=== PATIENT | female | born 1970 | race African-American/Black ===

== ENCOUNTER 2017-12-23 22:17 | Observation (INO) | payer OTHER ==
[2017-12-23 22:34] VITALS: BMI 32.8
[2017-12-24] MEDS ORDERED: SODIUM CHLORIDE 1,000 ML IV STA (00:19)
--- NOTE | 2017-12-24 00:19 | PDOC ---
History of Present Illness - General Chief Complaint: Pain Stated Complaint: WEAKNESS Time Seen by Provider: 12/24/17 00:02 - History of Present Illness Initial Comments: 12/24/17 00:36 The patient is a 47 year old female with a history of Anemia who presents for evaluation of headache. The patient notes onset of headache earlier today with some associated left hand numbness prompting her presentation to the ED for evaluation. She notes some associated photophobia and phonophobia as well and denies any history of headaches on exam. She otherwise denies fevers, chills, SOB, chest pain, nausea, vomiting, abdominal pain, weakness, tingling, or changes with urination or bowel movements. Past History - Past Medical History Allergies/Adverse Reactions: Allergies Allergy/AdvReac Type Severity Reaction Status Date / Time No Known Allergies Allergy Verified 12/23/17 22:31 Home Medications: Ambulatory Orders NK [No Known Home Medication] 12/24/17 Anemia: Yes COPD: No Thyroid Disease: Yes - Immunization History Immunization Up to Date: Yes - Suicide/Smoking/Psychosocial Hx Smoking History: Current every day smoker Have you smoked in the past 12 months: Yes Number of Cigarettes Smoked Daily: 4 Information on smoking cessation initiated: No 'Breaking Loose' booklet given: 01/02/15 Hx Alcohol Use: No Drug/Substance Use Hx: No Substance Use Type: None Review of Systems - Review of Systems Comments:: 12/24/17 00:37 Constitutional: No fevers, chills, fatigue, malaise HEENT: No Rhinorrhea, nasal congestion, visual changes Cardiovascular: No chest pain, syncope, palpitations, lightheadedness Respiratory: No Cough, SOB, Hemoptysis, Gastrointestinal: No Abdominal pain, Nausea, Vomiting, Constipation, Diarrhea, Melena Genitourinary: No Dysuria, Frequency, Urgency, Hesitancy, Hematuria, Flank pain Musculoskeletal: No Myalgia, arthralgia Skin: No rashes, itching, bruising, pallor Neurologic: Headache, numbness. No Dizziness, Weakness, or Tingling Psychiatric: No Hallucinations. No SI or HI *Physical Exam - Vital Signs Last Vital Signs Temp Pulse Resp BP Pulse Ox 99.0 F 98 H 18 120/73 100 12/23/17 22:32 12/23/17 22:32 12/23/17 22:32 12/23/17 22:32 12/23/17 22:32 - Physical Exam Comments: 12/24/17 00:38 General Appearance: Nourished. In Mild Apparent Distress HEENT: EOMI, EVAN. No Pharyngeal Erythema, Tonsillar Exudate, Tonsillar Erythema Neck: No Cervical Lymphadenopathy Respiratory/Chest: Lungs Clear, Normal Breath Sounds. No Crackles, Rales, Rhonchi, Wheezing Cardiovascular: Regular Rhythm, Regular Rate. No Murmur, Gallops, Rubs Gastrointestinal/Abdominal: Normal Bowel Sounds, Soft. No Guarding, Rebound, Tenderness Musculoskeletal: No CVA Tenderness Extremity: Normal Capillary Refill Integumentary: Normal Color, Dry, Warm Neurologic: fund accountant II-XII NML intact, Fully Oriented, Alert, Normal Mood/Affect, Normal Response, Motor Strength 5/5. ED Treatment Course - LABORATORY CBC & Chemistry Diagram: 12/24/17 00:40 12/24/17 00:40 Medical Decision Making - Medical Decision Making 12/24/17 00:41 The patient is a 47 year old female with a history of Anemia who presents for evaluation of headache. Differential includes but is not limited to: Migraine headache, Intracranial process, infectious, metabolic derangement. Given the patient's history and physical exam, we will obtain a cbc, cmp, ua, urine culture and head ct to evaluate further. We will treat in the meantime with iv fluids, iv tylenol, benadryl, and reglan. We will continue to monitor and reassess while here in the ED. 12/24/17 04:36 CBC demonstrates a hgb of 6.5. CMP, ua are unremarkable. Head CT is unremarkable as preliminarily read by our incident response manager radiologist. The patient reports continued symptoms as well as generalized weakness which is likely due to her anemia. She notes that she has had blood transfusions in the past and has not been taking her iron supplements lately. We believe the patient requires observation admission for further management and will transfuse the patient with 2 units of PRBC. We discussed the case with the hospitalist team who accepted the patient for admission. *DC/Admit/Observation/Transfer Diagnosis at time of Disposition: Headache Qualifiers: Headache type: unspecified Headache chronicity pattern: unspecified pattern Intractability: not intractable Qualified Code(s): R51 - Headache Anemia Qualifiers: Anemia type: unspecified type Qualified Code(s): D64.9 - Anemia, unspecified - Discharge Dispostion Condition at time of disposition: Stable Decision to Admit order: Yes - Referrals - Patient Instructions - Post Discharge Activity
[2017-12-24] MEDS ORDERED: ACETAMINOPHEN 1000 MG/100 ML VIAL (NON FORMULARY) IVPB ONE (00:20)
[2017-12-24] MEDS ORDERED: METOCLOPRAMIDE HCL INJECTION 10 MG/2 ML VIAL IVPUSH ONE (00:20)
[2017-12-24] MEDS ORDERED: METOCLOPRAMIDE HCL INJECTION 10 MG/2 ML VIAL ONE (00:35)
[2017-12-24] MEDS ORDERED: ACETAMINOPHEN INJECTION 100 ML IVPB ONE (00:35)
--- NOTE | 2017-12-24 00:37 | PDOC ---
Attending Attestation - HPI HPI: 12/24/17 00:43 The patient is a 47 year old female, with a significant past medical history of anemia, who presents to the emergency department with complaint of headache today. She reports her headache is exacerbated by sound and light. The patient denies chest pain, shortness of breath, visual changes, and dizziness. The patient denies fever, chills, nausea, vomit, diarrhea and constipation. The patient denies dysuria, frequency, urgency and hematuria. Allergies: NKDA Past surgical history: none reported Social history: denies tobacco and illicit drug use. - Medical Decision Making 12/24/17 00:43 Documentation prepared by Magaly Stubbs, acting as medical billing and coding specialist for Bj Swain DO. <Magaly Stubbs - Last Filed: 12/24/17 00:56> - Resident Resident Name: MonserratHieu - ED Attending Attestation I have performed the following: I have examined & evaluated the patient, The case was reviewed & discussed with the resident, I agree w/resident's findings & plan, Exceptions are as noted - Physicial Exam PE: 12/24/17 01:21 Physical Exam General Appearance: Yes: Appropriately Dressed. No: Apparent Distress, Intoxicated HEENT: positive: EOMI, EVAN, Normal ENT Inspection, Normal Voice, TMs Normal, Pharynx Normal. negative: Pale Conjunctivae, Photophobia, Scleral Icterus (R), Scleral Icterus (L) Neck: positive: Trachea midline, Normal Thyroid, Supple. negative: Tender, Rigid, Carotid bruit, Stridor, Lymphadenopathy (R), Lymphadenopathy (L), Thyromegaly Respiratory/Chest: positive: Lungs Clear, Normal Breath Sounds. negative: Chest Tender, Respiratory Distress, Accessory Muscle Use, Labored Respiration, RES, Crackles, Rales, Rhonchi, Stridor, Wheezing, Dullness Cardiovascular: positive: Regular Rhythm, Regular Rate, S1, S2. negative: Edema , JVD, Murmur, Bradycardia, Tachycardia Vascular Pulses: Dorsalis-Pedis (R): 2+, Doralis-Pedis (L): 2+ Gastrointestinal/Abdominal: positive: Normal Bowel Sounds, Flat, Soft. negative : Tender, Organomegaly, Pulsatile Mass, Increased Bowel Sounds, Decreased BS, Distended, Guarding, Rebound, Hernia, Hepatomegaly, Spleenomegaly Lymphatic: negative: Adenopathy, Tenderness Musculoskeletal: positive: Normal Inspection. negative: CVA Tenderness, Decreased Range of Motion Extremity: positive: Normal Capillary Refill, Normal Inspection, Normal Range of Motion, Pelvis Stable. negative: Tender, Pedal Edema, Swelling, Erythema Integumentary: positive: Normal Color, Dry, Warm. negative: Cyanotic, Erythema , Jaundice, Rash Neurologic: positive: digital asset coordinator II-XII NML intact, Fully Oriented, Alert, Normal Mood/ Affect, Motor Strength 5/5. negative: EOM Palsy, Facial Droop, Sensory Deficit - Medical Decision Making 12/24/17 02:11 Pt will be admitted for further evaluation and care. <Bj Swain - Last Filed: 12/24/17 02:11>
[2017-12-24 01:04] LABS: BASO % 0.7 % (0-2.0); EOS % 0.1 % (0-4.5); HEMATOCRIT 22.1 % (32.4-45.2); LYMPH % 27.6 % (8-40); MCHC 29.6 g/dl (32.0-36.0); MEAN CELL VOLUME 58.3 fl (80-96); MEAN PLT VOLUME 8.8 fl (7.5-11.1); MONO % 10.1 % (3.8-10.2); NEUT % 61.5 % (42.8-82.8); PLATELET COUNT 591 K/MM3 (134-434); RBC 3.78 M/mm3 (3.60-5.2); RDW 20.9 % (11.6-15.6); WHITE BLOOD COUNT 9.2 K/mm3 (4.0-10.0)
[2017-12-24 01:13] LABS: MCH 17.3 pg (25.7-33.7)
[2017-12-24 01:15] LABS: HEMOGLOBIN 6.5 GM/dL (10.7-15.3)
[2017-12-24] MEDS ORDERED: traMADol HCL 50 MG TABLET PO ONE (01:20)
[2017-12-24 01:22] LABS: ALBUMIN 3.3 g/dl (3.4-5.0); ANION GAP 5 (8-16); BILIRUBIN,TOTAL 0.1 mg/dL (0.2-1.0); BLOOD UREA NITROGEN 9 mg/dL (7-18); CHLORIDE 107 mmol/L (98-107); CO2 26 mmol/L (21-32); CREATININE 0.8 mg/dL (0.55-1.02); GLUCOSE,RANDOM 110 mg/dL (74-106); SGPT/ALT 26 U/L (12-78); SODIUM 138 mmol/L (136-145); TOT PROT 6.9 g/dl (6.4-8.2)
[2017-12-24 01:23] LABS: URINE APPEARANCE SLCLOUDY; URINE BILIRUBIN NEGATIVE (<2.0 mg/dL); URINE COLOR STRAW; URINE GLUCOSE (UA) NEGATIVE (NEGATIVE); URINE KETONE NEGATIVE (NEGATIVE); URINE LEUK ESTERASE NEGATIVE (NEGATIVE); URINE NITRITE NEGATIVE (NEGATIVE); URINE PROTEIN NEGATIVE (NEGATIVE); URINE UROBILINOGEN NEGATIVE mg/dL (0.2-1.0)
[2017-12-24 01:23] LABS: ALK PHOS 100 U/L (45-117)
[2017-12-24 01:25] LABS: POTASSIUM 4.4 mmol/L (3.5-5.1); SGOT/AST 37 U/L (15-37)
[2017-12-24 01:55] LABS: ANISOCYTOSIS 2+; PLATELET ESTIMATE INCREASED; TEAR DROP CELLS 1+
[2017-12-24] MEDS ORDERED: traMADol HCL 50 MG TABLET ONE (02:21)
--- NOTE | 2017-12-24 03:43 | PN ---
Teaching Attending Note Name of Resident: Zac Howell ATTENDING PHYSICIAN STATEMENT I saw and evaluated the patient. I reviewed the resident's note and discussed the case with the resident. I agree with the resident's findings and plan as documented. SUBJECTIVE: Patient is a 47 year old woman with a history of anemia, ?hypothyroidism, uterine fibroids, and menorrhagia who presents for evaluation of headache. The patient notes onset of headache earlier today with some associated left hand numbness prompting her presentation to the ED for evaluation. She notes some associated photophobia and phonophobia as well and denies any history of headaches on exam. She otherwise denies fevers, chills, SOB, chest pain, nausea , vomiting, abdominal pain, weakness, tingling, or changes with urination or bowel movements. She has known about her anemia for many years, has heavy menses that last up to 7 days, known about fibroid for years and has not aggressively explored options for care. Has 2 adult children. LMP - her period just concluded today. OBJECTIVE: In no acute distress. Obese Vital Signs Period Temp Pulse Resp BP Sys/Mcgraw Pulse Ox Last 24 Hr 99.0 F 98 18 120/73 100-100 HEENT: No Jaundice, eye redness or discharge, +Pallor; PERRLA, EOMI. Normocephalic, atraumatic. External ears are normal and hearing is grossly intact. No nasal discharge. Neck: Supple, nontender. No palpable adenopathy or thyromegaly. No JVD Chest: Good effort. Clear to auscultation and percussion. Heart: Regular. No S3, rub or murmur Abdomen: Not distended, soft, nontender and no HSM. No rebound or guarding. Normoactive bowel sounds. Ext: Peripheral pulses intact. No leg edema. Skin: Warm and dry. No petechiae, rash or ecchymosis. Neuro: Alert. Oriented x3. CN 2-12 grossly intact. Sensation grossly intact in all four extremities and DTR are symmetric. Home Medications Medication Instructions Recorded NK [No Known Home Medication] 12/24/17 Abnormal Lab Results 12/24/17 12/24/17 12/24/17 00:40 00:40 02:13 Hgb 6.5 L* Hct 22.1 L MCV 58.3 L MCH 17.3 L MCHC 29.6 L RDW 20.9 H Plt Count 591 H D Anion Gap 5 L Random Glucose 110 H Total Bilirubin 0.1 L Albumin 3.3 L Crossmatch See Detail ASSESSMENT AND PLAN: 1. Severe anemia - Likely due to fibroid-associated excessive menstrual bleeding. Headache most likely due to anemia. Head CT scan is negative and EKG shows T wave inversion in V4-6. Repeat EKG pending. Patient is most likely iron deficient, but will send blood to confirm and treat with IV Venofer 500 mg X 2 doses and get stool hemoccult test. Oral FeSO4 is useless in this setting. Needs STAT fibroid embolization or myomectomy/hysterectomy if embolization fails. The potential for anemia-induced heart failure explained to patient and her 32 year old daughter. Refer to IR and HEAD MECHANIC. 2. Obesity - Will provide patient all the necessary assistance, counseling and positive reinforcement to facilitate weight loss. Consult security systems technician. 3. DVT prophylaxis - Heparin 5000u sq tid. 4. Advance directives - Full code
[2017-12-24] MEDS ORDERED: SODIUM CHLORIDE 1,000 ML IV SCH (04:30)
[2017-12-24] MEDS ORDERED: IRON SUCROSE INJECTION 500 MG in SODIUM CHLORIDE 225 ML IVPB SCH (04:34)
--- NOTE | 2017-12-24 04:54 | HP ---
CHIEF COMPLAINT: hand tingling and headache PCP: HISTORY OF PRESENT ILLNESS: 47 yo female w? PMH of Fibroids, anemia (required transfusion once before), presents to ED complaining of headache, left hand numbness and tingling. Pt repeatedly fell asleep during interview and was not fully cooperative. States that she knows she has fibroids and that they cause heavy menstrual periods. LMP 1 wk ago, lasted 7 days, required 5/6 super absorbant pads per day.States that she has followed with PACKERHEAD MACHINE OPERATOR, but that they have never recommended surgery or embolization, though she has the history of anemia since . When I saw her , she says her headache has resolved. ER course was notable for: (1) H/H 6.5/22.1, MCV 58 (2) Type/Screen, 2 units PRBCs ordered from ED (3) Recent Travel: none PAST MEDICAL HISTORY: Anemia as above Uterine fibroid(s?) PAST SURGICAL HISTORY: denies Social History: Smoking: denies Alcohol: denies Drugs: denies Family History: Allergies No Known Allergies Allergy (Verified 12/23/17 22:31) HOME MEDICATIONS: Home Medications Medication Instructions Recorded NK [No Known Home Medication] 12/24/17 REVIEW OF SYSTEMS CONSTITUTIONAL: generalized weakness Absent: fever, chills, diaphoresis, , malaise, loss of appetite, weight change HEENT: Absent: rhinorrhea, nasal congestion, throat pain, throat swelling, difficulty swallowing, mouth swelling, ear pain, eye pain, visual changes CARDIOVASCULAR: Absent: chest pain, syncope, palpitations, irregular heart rate, lightheadedness , peripheral edema RESPIRATORY: Absent: cough, shortness of breath, dyspnea with exertion, orthopnea, wheezing, stridor, hemoptysis GASTROINTESTINAL: Absent: abdominal pain, abdominal distension, nausea, vomiting, diarrhea, constipation, melena, hematochezia GENITOURINARY: Absent: dysuria, frequency, urgency, hesitancy, hematuria, flank pain, genital pain MUSCULOSKELETAL: Absent: myalgia, arthralgia, joint swelling, back pain, neck pain SKIN: Absent: rash, itching, pallor HEMATOLOGIC/IMMUNOLOGIC: Absent: easy bleeding, easy bruising, lymphadenopathy, frequent infections ENDOCRINE: Absent: unexplained weight gain, unexplained weight loss, heat intolerance, cold intolerance NEUROLOGIC: paresthesias, headache Absent:, focal weakness, dizziness, unsteady gait, seizure, mental status changes, bladder or bowel incontinence PSYCHIATRIC: Absent: anxiety, depression, suicidal or homicidal ideation, hallucinations. PHYSICAL EXAMINATION Vital Signs - 24 hr 12/23/17 12/24/17 12/24/17 22:32 00:52 03:51 Temperature 99.0 F Pulse Rate 98 H Pulse Rate [ 88 Right] Respiratory 18 18 Rate Blood Pressure 120/73 Blood Pressure 122/76 [Left Arm] O2 Sat by Pulse 100 100 100 Oximetry (%) GENERAL: Sleepy during exam, repeatedly required reawakening, oriented. HEAD: Normal with no signs of trauma. EYES: PERRL, no scleral icterus EARS, NOSE, THROAT: Ears normal, nares patent, oropharynx clear without exudates. Moist mucous membranes. NECK: supple without lymphadenopathy, JVD, or masses. LUNGS: CTA b/l no rhonchi or crackles HEART: RRR no murmurs noted, S1S2 ABDOMEN: Soft, nontender, not distended, normoactive bowel sounds, no guarding, no rebound, Possible enlarged uterus MUSCULOSKELETAL: Normal range of motion at all joints. No bony deformities or tenderness. No CVA tenderness. UPPER EXTREMITIES: warm, well-perfused. No cyanosis. No clubbing. No peripheral edema. LOWER EXTREMITIES: warm, well-perfused. No calf tenderness. No peripheral edema. NEUROLOGICAL: Cranial nerves II-XII grossly intact. PSYCHIATRIC: uncooperative. oriented, but poor eye contact and communication Laboratory Results - last 24 hr 12/24/17 12/24/17 12/24/17 00:40 00:40 00:40 WBC 9.2 RBC 3.78 Hgb 6.5 L* Hct 22.1 L MCV 58.3 L MCH 17.3 L MCHC 29.6 L RDW 20.9 H Plt Count 591 H D MPV 8.8 Absolute Neuts (auto) 5.6 Neutrophils % 61.5 D Lymphocytes % 27.6 D Monocytes % 10.1 D Eosinophils % 0.1 Basophils % 0.7 Nucleated RBC % 0 Hypochromia 3+ Platelet Estimate Increased Platelet Comment Large platelets Polychromasia 2+ Basophilic Stippling 1+ Anisocytosis 2+ Microcytosis 3+ Tear Drop Cells 1+ Sodium 138 Potassium 4.4 Chloride 107 Carbon Dioxide 26 Anion Gap 5 L BUN 9 Creatinine 0.8 Creat Clearance w eGFR > 60 Random Glucose 110 H Calcium 9.0 Total Bilirubin 0.1 L AST 37 ALT 26 Alkaline Phosphatase 100 Total Protein 6.9 Albumin 3.3 L Serum , Qual Negative Urine Color Urine Appearance Urine pH Ur Specific [place] Urine Protein Urine Glucose (UA) Urine Ketones Urine Blood Urine Nitrite Urine Bilirubin Urine Urobilinogen Ur Leukocyte Esterase Blood Type Antibody Screen Crossmatch 12/24/17 12/24/17 01:05 02:13 WBC RBC Hgb Hct MCV MCH MCHC RDW Plt Count MPV Absolute Neuts (auto) Neutrophils % Lymphocytes % Monocytes % Eosinophils % Basophils % Nucleated RBC % Hypochromia Platelet Estimate Platelet Comment Polychromasia Basophilic Stippling Anisocytosis Microcytosis Tear Drop Cells Sodium Potassium Chloride Carbon Dioxide Anion Gap BUN Creatinine Creat Clearance w eGFR Random Glucose Calcium Total Bilirubin AST ALT Alkaline Phosphatase Total Protein Albumin Serum , Qual Urine Color Straw Urine Appearance Slcloudy Urine pH 6.0 Ur Specific [place] 1.010 Urine Protein Negative Urine Glucose (UA) Negative Urine Ketones Negative Urine Blood Negative Urine Nitrite Negative Urine Bilirubin Negative Urine Urobilinogen Negative Ur Leukocyte Esterase Negative Blood Type B POSITIVE Antibody Screen Negative Crossmatch See Detail ASSESSMENT/PLAN: 47 yo female with PMH known uterine fibroid(s) and anemia admitted for symptomatic anemia secondary to heavy menstrual bleeding due to uterine fibroid. Anemia -secondary to heavy menstrual bleeding most likely caused by fibroid -H/H 6.5/22.1, MCH 58, known blood loss anemia -Type and Screen and 2 units PRBC ordered by ED -Recheck CBC after first unit -IV Venofer 500 mg BID for total of 1000mg (2 doses) Uterine Fibroids -known fibroids from previous workup, repeated return for anemia with no outpatient management -IR consulted for consideration of fibroid embolization -PACKERHEAD MACHINE OPERATOR consulted for possible fibroid removal/hysterectomy Headache -could be secondary to anemia -resolved at this time -Tylenol 650 mg PO Q6 PRN FEN -Fluids: NS @ 75 cc/hr -Electrolytes: no abnormalities, recheck BMP in AM -Nutrition: regular diet DVT Prophylaxis -SCD's Disposition Admit to med/surg Visit type - Emergency Visit Emergency Visit: Yes ED Registration Date: 12/24/17 Care time: The patient presented to the Emergency Department on the above date and was hospitalized for further evaluation of their emergent condition. - New Patient This patient is new to me today: Yes Date on this admission: 12/24/17 - Critical Care Critical Care patient: No Hospitalist Screening - Colonoscopy Questionnaire Colonoscopy Questionnaire: Colonoscopy Questionnaire - Patient: 50 - 75 years old and never had a screening colonoscopy: No History of colon or rectal polyps, or CA: No History of IBD, Crohn's disease or UC: No History of abdominal radiation therapy as a child: No - Relative: 1 with colon or rectal CA, or polyps at age 60 or younger: No Colon or rectal CA diagnosed at age 45 or younger: No Multiple relatives with colon or rectal CA: No - Outcome: Screening Result: Negative Screen
[2017-12-24 09:26] VITALS: TEMP 98.1
[2017-12-24 09:26] LABS: HEMATOCRIT 22.7 % (32.4-45.2); MCHC 30.7 g/dl (32.0-36.0); MEAN CELL VOLUME 61.1 fl (80-96); MEAN PLT VOLUME 8.5 fl (7.5-11.1); PLATELET COUNT 467 K/MM3 (134-434); RBC 3.72 M/mm3 (3.60-5.2); WHITE BLOOD COUNT 7.6 K/mm3 (4.0-10.0)
[2017-12-24 09:40] LABS: MCH 18.7 pg (25.7-33.7)
[2017-12-24 09:52] LABS: ANION GAP 7 (8-16); BLOOD UREA NITROGEN 8 mg/dL (7-18); CALCIUM 8.7 mg/dL (8.5-10.1); CHLORIDE 110 mmol/L (98-107); CO2 25 mmol/L (21-32); CREATININE 0.7 mg/dL (0.55-1.02); GLUCOSE,RANDOM 110 mg/dL (74-106); MAGNESIUM 1.9 mg/dL (1.8-2.4); PHOSPHOROUS 3.4 mg/dL (2.5-4.9); POTASSIUM 4.3 mmol/L (3.5-5.1); SODIUM 142 mmol/L (136-145)
--- NOTE | 2017-12-24 10:09 | EKG ---
Test Reason : Blood Pressure : / mmHG Vent. Rate : 073 BPM Atrial Rate : 073 BPM P-R Int : 166 ms QRS Dur : 098 ms QT Int : 402 ms P-R-T Axes : 044 028 009 degrees QTc Int : 442 ms NORMAL SINUS RHYTHM T WAVE ABNORMALITY, CONSIDER ANTEROLATERAL ISCHEMIA ABNORMAL ECG NO PREVIOUS ECGS AVAILABLE Confirmed by RUTH SOTO MD ([id number]) on 12/24/2017 10:09:16 AM Referred By: Confirmed By:RUTH SOTO MD
--- NOTE | 2017-12-24 13:20 | EKG ---
Test Reason : Blood Pressure : / mmHG Vent. Rate : 064 BPM Atrial Rate : 064 BPM P-R Int : 174 ms QRS Dur : 096 ms QT Int : 426 ms P-R-T Axes : 039 038 007 degrees QTc Int : 439 ms NORMAL SINUS RHYTHM T WAVE ABNORMALITY, CONSIDER ANTERIOR ISCHEMIA ABNORMAL ECG WHEN COMPARED WITH ECG OF 24-DEC-2017 02:07, NO SIGNIFICANT CHANGE WAS FOUND Confirmed by RUTH SOTO MD ([id number]) on 12/24/2017 1:20:16 PM Referred By: Confirmed By:RUTH SOTO MD
[2017-12-24 14:55] VITALS: BP 106/54; PULSE 65
[2017-12-24 15:54] LABS: BASO % 0.4 % (0-2.0); HEMOGLOBIN 8.4 GM/dL (10.7-15.3); LYMPH % 25.2 % (8-40); MCHC 31.1 g/dl (32.0-36.0); MEAN CELL VOLUME 62.8 fl (80-96); MEAN PLT VOLUME 8.9 fl (7.5-11.1); MONO % 12.7 % (3.8-10.2); NEUT % 61.7 % (42.8-82.8); PLATELET COUNT 531 K/MM3 (134-434); RBC 4.31 M/mm3 (3.60-5.2); WHITE BLOOD COUNT 8.9 K/mm3 (4.0-10.0)
[2017-12-24 15:58] LABS: ADD RBC MORPHOLOGY YES; MCH 19.5 pg (25.7-33.7)
--- NOTE | 2017-12-24 17:12 | DS ---
Physical Exam: SUBJECTIVE: Patient seen and examined. States shes feeling better, the tingling in her left arm is improved. OBJECTIVE: Vital Signs Period Temp Pulse Resp BP Sys/Mcgraw Pulse Ox Last 24 Hr 98.1 F-99.0 F 65-98 -18 98-122/54-76 100-100 PE Neuro: alert, awake, cn 2-12intact 5/5 motor sensory LUE 4/5 Pulm: CTAB CV: s1 s2 rrr Abd: s nt nd + bs Ext: warm, no le edema Laboratory Results - last 24 hr 12/24/17 12/24/17 12/24/17 00:40 00:40 00:40 WBC 9.2 RBC 3.78 Hgb 6.5 L* Hct 22.1 L MCV 58.3 L MCH 17.3 L MCHC 29.6 L RDW 20.9 H Plt Count 591 H D MPV 8.8 Absolute Neuts (auto) 5.6 Neutrophils % 61.5 D Lymphocytes % 27.6 D Monocytes % 10.1 D Eosinophils % 0.1 Basophils % 0.7 Nucleated RBC % 0 Hypochromia 3+ Platelet Estimate Increased Platelet Comment Large platelets Polychromasia 2+ Basophilic Stippling 1+ Anisocytosis 2+ Microcytosis 3+ Tear Drop Cells 1+ Sodium 138 Potassium 4.4 Chloride 107 Carbon Dioxide 26 Anion Gap 5 L BUN 9 Creatinine 0.8 Creat Clearance w eGFR > 60 Random Glucose 110 H Calcium 9.0 Phosphorus Magnesium Total Bilirubin 0.1 L AST 37 ALT 26 Alkaline Phosphatase 100 Total Protein 6.9 Albumin 3.3 L Serum , Qual Negative Urine Color Urine Appearance Urine pH Ur Specific Marion Urine Protein Urine Glucose (UA) Urine Ketones Urine Blood Urine Nitrite Urine Bilirubin Urine Urobilinogen Ur Leukocyte Esterase Blood Type Antibody Screen Crossmatch 12/24/17 12/24/17 12/24/17 01:05 02:13 09:10 WBC 7.6 RBC 3.72 Hgb 7.0 L Hct 22.7 L MCV 61.1 L MCH 18.7 L MCHC 30.7 L RDW 24.0 H Plt Count 467 H D MPV 8.5 Absolute Neuts (auto) Neutrophils % Lymphocytes % Monocytes % Eosinophils % Basophils % Nucleated RBC % Hypochromia Platelet Estimate Platelet Comment Polychromasia Basophilic Stippling Anisocytosis Microcytosis Tear Drop Cells Sodium Potassium Chloride Carbon Dioxide Anion Gap BUN Creatinine Creat Clearance w eGFR Random Glucose Calcium Phosphorus Magnesium Total Bilirubin AST ALT Alkaline Phosphatase Total Protein Albumin Serum , Qual Urine Color Straw Urine Appearance Slcloudy Urine pH 6.0 Ur Specific Marion 1.010 Urine Protein Negative Urine Glucose (UA) Negative Urine Ketones Negative Urine Blood Negative Urine Nitrite Negative Urine Bilirubin Negative Urine Urobilinogen Negative Ur Leukocyte Esterase Negative Blood Type B POSITIVE Antibody Screen Negative Crossmatch See Detail 12/24/17 12/24/17 09:10 14:50 WBC 8.9 RBC 4.31 Hgb 8.4 L Hct 27.0 L D MCV 62.8 L MCH 19.5 L MCHC 31.1 L RDW 28.0 H Plt Count 531 H MPV 8.9 Absolute Neuts (auto) 5.5 Neutrophils % 61.7 Lymphocytes % 25.2 Monocytes % 12.7 H Eosinophils % 0.0 D Basophils % 0.4 Nucleated RBC % 0 Hypochromia Platelet Estimate Platelet Comment Polychromasia Basophilic Stippling Anisocytosis Microcytosis Tear Drop Cells Sodium 142 Potassium 4.3 Chloride 110 H Carbon Dioxide 25 Anion Gap 7 L BUN 8 Creatinine 0.7 Creat Clearance w eGFR > 60 Random Glucose 110 H Calcium 8.7 Phosphorus 3.4 Magnesium 1.9 Total Bilirubin AST ALT Alkaline Phosphatase Total Protein Albumin Serum , Qual Urine Color Urine Appearance Urine pH Ur Specific Marion Urine Protein Urine Glucose (UA) Urine Ketones Urine Blood Urine Nitrite Urine Bilirubin Urine Urobilinogen Ur Leukocyte Esterase Blood Type Antibody Screen Crossmatch HOSPITAL COURSE: Date of Admission:12/24/17 Date of Discharge: 12/24/17 Minutes to complete discharge: 35 Discharge Summary Reason For Visit: ANEMIA,HEADACHE Current Active Problems Headache (Acute) Anemia (Chronic) Hospital Course: Hospital Course: Briefly, this 47 year old female with a history of anemia, ?hypothyroidism, uterine fibroids, and menorrhagia presented with headache. On the onset of pt headache she had some associated left hand numbness prompting her presentation to the ED for evaluation. She noted some associated photophobia and phonophobia. She has known about her anemia for many years, has heavy menses that last up to 7 days, known about fibroid for years and has not aggressively explored options for care. Has 2 adult children. LMP - her period concluded today with heavy clots noted. Plan: 1. Acute anemia blood loss - Due to uterine fibroids and menorrhagia - Transfused 2uprbc with appropriate rise in hgb - Discussed uterine embolization with patient and work up, referral information with Dr. Maxwell given, pap smear results and to set up pelvic MRI w/wo contrast , procedure can be done as outpt - Pt aware and agrees to above plan Condition: Stable - Instructions Diet, Activity, Other Instructions: Please return to the ED for any new, persistent, or worsening symptoms. Follow up with your PCP in 1 week. Steps for Embolization work up Obtain PAP smear results from [facility]UNDR[facility]OUTEMAN Call [phone] speak to Sindi for appt with Dr. Maxwell for Pelvis MRI with and without contrast After this they will make appt for outpt uterine embolization procedure Referrals: Brian Linares MD [Primary Care Provider] - Toño Suazo MD [Staff Physician] - 1 Week Disposition: HOME - Home Medications Comprehensive Discharge Medication List: Ambulatory Orders NK [No Known Home Medication] 12/24/17 This patient is new to me today: Yes Date on this admission: 12/24/17 Emergency Visit: Yes ED Registration Date: 12/24/17 Care time: The patient presented to the Emergency Department on the above date and was hospitalized for further evaluation of their emergent condition. Critical Care patient: No - Discharge Referral Referred to [facility] No
== END 2017-12-24 17:30 | disposition home or self-care (01) ==
LOC: JER 22:17 → UNDOADMOB 12-24 02:32 → JERBED 12-24 02:32 → OBSVTOIN 12-24 04:26 → INTOOBSV 12-24 04:26 → JERBED 12-24 07:29 → J8W 12-24 07:29 → JERBED 12-24 14:23 → J8W 12-24 14:23
PROVIDERS: ADMIT Internal Medicine; ATTEND Nurse Practitioner Acute Care
PROC: 3E033NZ Introduction of Analgesics, Hypnotics, Sedatives into Peripheral Vein, Percutaneous Approach (ICD-10-PCS; principal; 2017-12-24)
PROC: 3E033GC Introduction of Other Therapeutic Substance into Peripheral Vein, Percutaneous Approach (ICD-10-PCS; 2017-12-24)
PROC: 3E0337Z Introduction of Electrolytic and Water Balance Substance into Peripheral Vein, Percutaneous Approach (ICD-10-PCS; 2017-12-24)
DX: R51 Headache (principal); D64.9 Anemia, unspecified; F17.210 Nicotine dependence, cigarettes, uncomplicated; E66.9 Obesity, unspecified; Z68.32 Body mass index [BMI] 32.0-32.9, adult; D25.9 Leiomyoma of uterus, unspecified
CPT/HCPCS: 36415; 36430; 36511; 70450-TC; 71045-TC-FY; 80048; 80053; 81003; 83735; 84100; 84703; 85025; 85027; 86850; 86900; 86901; 86922; 87086; 93005; 93010; 99285-25; G0378; J0131; J7030; P9038; P9058

== ENCOUNTER 2018-11-07 15:39 | Emergency (ER) | payer OTHER | END 2018-11-07 19:14 | disposition home or self-care (01) | LOC: JER 15:39 ==

== ENCOUNTER 2019-08-22 14:01 | Emergency (ER) | payer OTHER ==
[2019-08-22 14:07] VITALS: BP 140/78; PULSE 82; TEMP 97.9
--- NOTE | 2019-08-22 15:21 | PDOC ---
Rapid Medical Evaluation Medical Evaluation: Allergies Allergy/AdvReac Type Severity Reaction Status Date / Time No Known Allergies Allergy Verified 08/22/19 14:07 Vital Signs Temp Pulse Resp BP Pulse Ox 97.9 F 82 18 140/78 100 08/22/19 14:07 08/22/19 14:07 08/22/19 14:07 08/22/19 14:07 08/22/19 14:07 08/22/19 15:20 I have performed a brief in-person evaluation of this patient. The patient presents with a chief complaint of:mild cough x 2 days, no sob, aches or fever Pertinent physical exam findings:stable w/ nl HEENT and clear lungs I have ordered the following:nothing The patient will proceed to the ED for further evaluation. 08/22/19 15:21 Discharge Disposition - Diagnosis URI (upper respiratory infection) Qualifiers: URI type: unspecified viral URI Qualified Code(s): J06.9 - Acute upper respiratory infection, unspecified - Discharge Dispostion Disposition: HOME Last Admission D/C Date: 12/18/18 - Referrals Referrals: Brian Linares MD [Primary Care Provider] - - Patient Instructions - Post Discharge Activity
--- NOTE | 2019-08-22 15:40 | PDOC ---
*Physical Exam - Vital Signs Last Vital Signs Temp Pulse Resp BP Pulse Ox 97.9 F 82 18 140/78 100 08/22/19 14:07 08/22/19 14:07 08/22/19 14:07 08/22/19 14:07 08/22/19 14:07 ED Progress Note - Progress Note Progress Note: 08/22/19 15:47 Pt upset that she does not meet criteria for covid testing. Yelled profanities at staff including Dr Messina by calling him "a piece of shit" and called both myself and RELIEF MASTER Wyatt "bitches". Security called to scene and escorted pt off premises. Did not sign dc papers 08/22/19 15:48 Discharge - Discharge Information Problems reviewed: Yes Clinical Impression/Diagnosis: URI (upper respiratory infection) Qualifiers: URI type: unspecified viral URI Qualified Code(s): J06.9 - Acute upper respiratory infection, unspecified Condition: Stable Disposition: HOME - Follow up/Referral Referrals: Brian Linares MD [Primary Care Provider] - - Patient Discharge Instructions Patient Printed Discharge Instructions: DI for Viral Upper Respiratory Infection -- Adult - Post Discharge Activity
== END 2019-08-22 15:34 | disposition home or self-care (01) ==
LOC: JER 14:01
DX: J06.9 Acute upper respiratory infection, unspecified (principal)
CPT/HCPCS: 99282-25

== ENCOUNTER 2019-08-22 16:40 | Emergency (ER) | payer OTHER ==
--- NOTE | 2019-08-22 17:14 | PDOC ---
History of Present Illness - General Chief Complaint: Diarrhea Stated Complaint: COUGH,DIARRHEA Time Seen by Provider: 08/22/19 16:48 History Source: Patient Exam Limitations: No Limitations - History of Present Illness Initial Comments: 08/22/19 17:11 49 y/o female with diarrhea and mild nausea that started yesterday. Patient denies recent travel or exposure to COVID-19. No fever or chills. No vomiting. No other complaint at this time or sick contacts. Patient denies abdominal pain or back pain. Was seen at [facility] earlier today and given a medical screening exam and escorted out. Denies dysuria or blood in stool. 08/22/19 17:13 Is this a multiple visit Asthma Patient?: No Past History - Past Medical History Allergies/Adverse Reactions: Allergies Allergy/AdvReac Type Severity Reaction Status Date / Time No Known Allergies Allergy Verified 08/22/19 14:07 Home Medications: Ambulatory Orders Ferrous Sulfate 325 mg PO BID 12/14/18 Multivitamin [Multiple Vitamins] 1 each PO DAILY 12/14/18 Aspirin [ASA -] 81 mg PO DAILY 08/22/19 Anemia: Yes Asthma: No Cancer: No Cardiac Disorders: No CVA: No COPD: No CHF: No Dementia: No Diabetes: No GI Disorders: No Disorders: No HTN: No Hypercholesterolemia: No Liver Disease: No Seizures: No Thyroid Disease: Yes - Immunization History Immunization Up to Date: Yes - Psycho Social/Smoking Cessation Hx Smoking History: Never smoked Have you smoked in the past 12 months: No Number of Cigarettes Smoked Daily: 4 'Breaking Loose' booklet given: 12/14/18 Hx Alcohol Use: Yes (WEEKENDS) Drug/Substance Use Hx: Yes (WEEKENDS) Substance Use Type: None, Marijuana Hx Substance Use Treatment: Yes Review of Systems - Review of Systems Able to Perform ROS?: Yes Is the patient limited Vietnamese proficient: No Constitutional: No: Chills, Fever Respiratory: No: Cough, Shortness of Breath Cardiac (ROS): No: Chest Pain ABD/GI: Yes: Diarrhea, Nausea. No: Vomiting All Other Systems: Reviewed and Negative ED Treatment Course - ADDITIONAL ORDERS Additional order review: 08/22/19 18:39 Patient has not been brought back to the area to be examined due to multiple more urgent cases. Case will need to be signed out to Dr. Garcia at 1900. Discharge - Discharge Information Problems reviewed: Yes Clinical Impression/Diagnosis: Diarrhea Qualifiers: Diarrhea type: unspecified type Qualified Code(s): R19.7 - Diarrhea, unspe cified - Follow up/Referral - Patient Discharge Instructions - Post Discharge Activity
[2019-08-22 19:55] VITALS: BP 133/84; PULSE 73; TEMP 99.2; BMI 33.0
--- NOTE | 2019-08-23 01:02 | PDOC ---
Documentation entered by Natividad Copeland SCRIBE, acting as scribe for Risa Garcia MD. Risa Garcia MD: This documentation has been prepared by the patyibeMin Maria, SCRIBE, under my direction and personally reviewed by me in its entirety. I confirm that the documentation accurately reflects all work, treatment, procedures, and medical decision making performed by me. *Physical Exam - Vital Signs Last Vital Signs Temp Pulse Resp BP Pulse Ox 99.2 F 73 16 133/84 100 08/22/19 16:40 08/22/19 16:40 08/22/19 16:40 08/22/19 16:40 08/22/19 16:40 - Physical Exam 08/22/19 20:11 GENERAL: Awake, alert, and fully oriented, in no acute distress HEAD: No signs of trauma EYES: PERRLA, EOMI, sclera anicteric, conjunctiva clear ENT: Auricles normal inspection, hearing grossly normal, nares patent, oropharynx clear without exudates. Moist mucosa NECK: Normal ROM, supple, no lymphadenopathy, JVD, or masses LUNGS: Breath sounds equal, clear to auscultation bilaterally. No wheezes, and no crackles HEART: Regular rate and rhythm, normal S1 and S2, no murmurs, rubs or gallops ABDOMEN: Soft, nontender, normoactive bowel sounds. No guarding, no rebound. No masses EXTREMITIES: Normal range of motion, no edema. No clubbing or cyanosis. No cords, erythema, or tenderness NEUROLOGICAL: Cranial nerves II through XII grossly intact. Normal speech, normal gait SKIN: Warm, Dry, normal turgor, no rashes or lesions noted. ED Progress Note - Progress Note Progress Note: As noted above, this 49-year-old woman with no significant past medical history presents with a few day history of watery diarrhea. She has had minimal nausea but no vomiting and has been able to continue to drink fluids and eat a light diet. She has not had any fever/chills/shortness of breath or cough. She is concerned regarding COVID-19 and admits to being anxious. Exam as noted. She has low-grade fever of 99.2 F but no other abnormalities of her vital signs. Lung sounds are clear bilaterally and abdomen is soft and nontender with normal bowel sounds. Patient was discharged with instructions to continue her light diet as tolerated and to use [id number] medications for her diarrhea such as Pepto- Bismol/Imodium/Kaopectate. 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 she was advised to not report to work if she continues to have diarrhea and low-grade fever. She should return to the ER if she has shortness of breath, severe cough or persistent high fever. She states that she does not have a general medical doctor; she lives in [place] and would prefer a doctor in that area. She was given Dr. Linares is referral information. She should call within the next few days to arrange follow-up. Discharge - Discharge Information Problems reviewed: Yes Clinical Impression/Diagnosis: Diarrhea Qualifiers: Diarrhea type: unspecified type Qualified Code(s): R19.7 - Diarrhea, unspecified Condition: Stable Disposition: HOME - Follow up/Referral Referrals: Brian Linares MD [Staff Physician] - 1 week - Patient Discharge Instructions Patient Printed Discharge Instructions: Diarrhea Additional Instructions: maintain hydration with frequent,small amounts of clear liquids light diet Imodium/Kaopectate/Pepto-bismol as needed for persistent diarrhea no work on Friday if diarrhea is persistent return to ER if you have chest pain, shortness of breath or high fever call Dr Linares office within 1-2 days to arrange followup - Post Discharge Activity
== END 2019-08-22 20:15 | disposition home or self-care (01) ==
LOC: FER 16:40
DX: R19.7 Diarrhea, unspecified (principal)
CPT/HCPCS: 99282-25

== ENCOUNTER 2020-12-29 22:57 | Emergency (ER) | payer SELFPAY ==
[2020-12-29 23:04] VITALS: BP 117/88; PULSE 109; TEMP 100.6; BMI 29.7
[2020-12-30 02:03] LABS: EPI CELLS 33 /uL (0-25.1); HYALINE CASTS 1 /uL (0-3.1); URINE APPEARANCE CLOUDY; URINE BACTERIA 592 /uL (0-1359); URINE BILIRUBIN NEGATIVE (NEGATIVE); URINE COLOR YELLOW; URINE GLUCOSE (UA) NEGATIVE (NEGATIVE); URINE KETONE TRACE (NEGATIVE); URINE LEUK ESTERASE TRACE (NEGATIVE); URINE NITRITE NEGATIVE (NEGATIVE); URINE PROTEIN NEGATIVE (NEGATIVE); URINE RBC 4 /uL (0-23.9); URINE UROBILINOGEN 0.2 mg/dL (0.2-1.0); URINE WBC 42 /uL (0-25.8)
== END 2020-12-30 02:10 | disposition home or self-care (01) ==
LOC: JER 22:57
DX: R50.9 Fever, unspecified (principal); Z11.52 Encounter for screening for COVID-19
CPT/HCPCS: 81003; 87804; 99283-25; C9803; U0003; U0005

== ENCOUNTER 2021-11-11 02:48 | Emergency (ER) | payer SELFPAY ==
[2021-11-11 03:06] VITALS: BP 120/86; PULSE 88; TEMP 98.2; BMI 31.3
[2021-11-11] MEDS ORDERED: TETRACAINE 0.5% HCL 0.6ML DROPPER.BOTTLE OD ONE (03:31)
[2021-11-11] MEDS ORDERED: FLUORESCEIN NA 1 EA STRIP OD ONE (03:31)
[2021-11-11] MEDS ORDERED: FLUORESCEIN NA 1 EA STRIP ONE (03:32)
[2021-11-11] MEDS ORDERED: TETRACAINE 0.5% OPHTH SOLN 2 ML BOTTLE ONE (03:32)
== END 2021-11-11 04:08 | disposition home or self-care (01) ==
LOC: JER 02:48
DX: S05.01XA Injury of conjunctiva and corneal abrasion without foreign body, right eye, initial encounter (principal)
CPT/HCPCS: 99283-25

== ENCOUNTER 2022-05-20 15:01 | Emergency (ER) | payer OTHER ==
[2022-05-20 15:28] VITALS: BP 112/76; PULSE 79; RESP 18; TEMP 99.8; BMI 31.3
[2022-05-20] MEDS ORDERED: IBUPROFEN 600 MG TABLET (FP) PO ONE (17:23)
== END 2022-05-20 17:39 | disposition home or self-care (01) ==
LOC: JER 15:01
DX: U07.1 COVID-19 (principal); R05.1 Acute cough; J02.9 Acute pharyngitis, unspecified
CPT/HCPCS: 0241U-QW; 99283-25

== ENCOUNTER 2022-06-01 19:18 | Emergency (ER) | payer OTHER ==
[2022-06-01 19:32] VITALS: RESP 18; BMI 31.3
[2022-06-01] MEDS ORDERED: ACETAMINOPHEN 1000 MG/100 ML BAG IVPB ONE (20:02)
[2022-06-01] MEDS ORDERED: AMPICILLIN NA/SULBACTAM NA 3 GM in SODIUM CHLORIDE 100 ML IVPB ONE (20:03)
[2022-06-01] MEDS ORDERED: VANCOMYCIN 1 GM in D5W (PRE-DOCKED) 1,000 MG/250 ML IVPB ONE (20:04)
[2022-06-01] MEDS ORDERED: VANCOMYCIN/WATER FOR INJ (PEG) 1,000 MG/200 ML BAG IVPB ONE (20:13)
[2022-06-01] MEDS ORDERED: ACETAMINOPHEN INJECTION 100 ML IVPB ONE (20:13)
[2022-06-01 21:08] LABS: BASO % 0.5 % (0-2.0); HEMATOCRIT 41.3 % (32.4-45.2); HEMOGLOBIN 13.7 GM/dL (10.7-15.3); MCH 28.4 pg (25.7-33.7); MCHC 33.2 g/dl (32.0-36.0); MEAN CELL VOLUME 85.7 fl (80-96); MEAN PLT VOLUME 8.9 fl (7.5-11.1); MONO % 12.5 % (3.8-10.2); PLATELET COUNT 306 10^3/uL (134-434); RBC 4.83 M/mm3 (3.60-5.2); RDW 14.6 % (11.6-15.6); WHITE BLOOD COUNT 8.1 K/mm3 (4.0-10.0)
[2022-06-01 22:16] LABS: ALBUMIN 3.5 g/dl (3.4-5.0)
[2022-06-01 22:17] LABS: BLOOD UREA NITROGEN 9.2 mg/dL (7-18)
[2022-06-01 22:20] LABS: CREATININE 0.8 mg/dL (0.55-1.3)
[2022-06-01 22:21] LABS: BILIRUBIN,TOTAL 0.4 mg/dL (0.2-1); TOT PROT 6.7 g/dl (6.4-8.2)
[2022-06-02] MEDS ORDERED: ACETAMINOPHEN 1000 MG/100 ML BAG IVPB ONE (03:31)
[2022-06-02] MEDS ORDERED: ACETAMINOPHEN INJECTION 100 ML IVPB ONE (03:47)
[2022-06-02 06:59] VITALS: TEMP 98.3
[2022-06-02 08:56] VITALS: BP 124/100; PULSE 80
[2022-06-02] MEDS ORDERED: KETOROLAC TROMETHAMINE 15 MG/ML VIAL IVPUSH ONE (09:24)
[2022-06-02] MEDS ORDERED: KETOROLAC TROMETHAMINE 15 MG/ML VIAL ONE (09:30)
== END 2022-06-02 10:16 | disposition short-term general hospital (02) ==
LOC: JER 19:18
PROC: 3E033GC Introduction of Other Therapeutic Substance into Peripheral Vein, Percutaneous Approach (ICD-10-PCS; principal; 2022-06-01)
DX: U07.1 COVID-19 (principal); R22.0 Localized swelling, mass and lump, head
CPT/HCPCS: 0241U-QW; 70487-TC; 80053; 84703; 85025; 87040; 93005; 93010; 99285-25

== ENCOUNTER 2022-10-09 12:32 | Emergency (ER) | payer OTHER ==
[2022-10-09 12:37] VITALS: BP 103/67; PULSE 73; RESP 18; TEMP 98.2; BMI 28.1
[2022-10-09 14:50] LABS: BASO % 0.4 % (0-2.0); EOS % 0.1 % (0-4.5); HEMATOCRIT 38.9 % (32.4-45.2); HEMOGLOBIN 13.3 GM/dL (10.7-15.3); LYMPH % 34.1 % (8-40); MCH 28.8 pg (25.7-33.7); MCHC 34.1 g/dl (32.0-36.0); MEAN CELL VOLUME 84.6 fl (80-96); MEAN PLT VOLUME 9.6 fl (7.5-11.1); MONO % 10.9 % (3.8-10.2); NEUT % 54.5 % (42.8-82.8); PLATELET COUNT 327 10^3/uL (134-434); RDW 14.7 % (11.6-15.6); WHITE BLOOD COUNT 5.2 K/mm3 (4.0-10.0)
[2022-10-09 15:09] LABS: CHLORIDE 109 mmol/L (98-107); SODIUM 140 mmol/L (136-145)
[2022-10-09 15:11] LABS: CALCIUM 9.9 mg/dL (8.5-10.1)
[2022-10-09 15:12] LABS: ALBUMIN 3.7 g/dl (3.4-5.0); BLOOD UREA NITROGEN 11.1 mg/dL (7-18); CO2 28 mmol/L (21-32); GLUCOSE,RANDOM 91 mg/dL (74-106)
[2022-10-09 15:15] LABS: CREATININE 0.9 mg/dL (0.55-1.3); SGOT/AST 50 U/L (15-37); SGPT/ALT 19 U/L (13-61)
[2022-10-09 15:16] LABS: BILIRUBIN,TOTAL 0.4 mg/dL (0.2-1); TOT PROT 8.1 g/dl (6.4-8.2)
[2022-10-09 15:18] LABS: ALK PHOS 110 U/L (45-117)
[2022-10-09 15:21] LABS: ANION GAP 3 MMOL/L (8-16); POTASSIUM 7.7 mmol/L (3.5-5.1)
== END 2022-10-09 18:50 | disposition left against medical advice (07) ==
LOC: JER 12:32
DX: R25.1 Tremor, unspecified (principal); R45.0 Nervousness
CPT/HCPCS: 36415; 80053; 82962; 84132; 84443; 85025; 99283-25